=== PATIENT | female | born 1965 | race Caucasian/White ===

== ENCOUNTER 2018-04-07 22:06 | Emergency (ER) | payer OTHER ==
--- NOTE | 2018-04-07 22:26 | EDM.PDOC ---
ED HPI GENERAL MEDICAL PROBLEM - General Chief Complaint: ENT Problem Stated Complaint: SOMETHING LODGED IN THROAT Time Seen by Provider: 04/07/18 22:21 Source of Information: Reports: Patient, Family History Limitations: Reports: No Limitations - History of Present Illness INITIAL COMMENTS - FREE TEXT/NARRATIVE: 52-year-old female presents to the ED with a foreign body sensation in her upper throat. She states she took a disc-like tablet that is supposed to help her sleep and is an nuiy-hzu-hxnlwzj preparation 40 minutes before coming to the ED. She felt it get stuck in her upper esophagus and it won't go down. She is able to drink warm water and it's going by it but she can feel the foreign body sensation in her upper throat. She feels a little nauseated and like she could throw up but has not thus far. Is the first time she's taken this over-the -counter preparation which apparently is a herbal medication to try and help sleep. She believes it was supposed to be a chewable disc like tablet and she swallowed it whole. Onset: Today Onset Date: 04/07/18 Onset Time: 21:30 Duration: Minutes: Location: Reports: Chest (Or body stuck at the suprasternal notch area of her throat.) Quality: Reports: Ache, Pressure Severity: Moderate Improves with: Reports: None Worsens with: Reports: None Context: Reports: Other (Foreign body in her esophagus.). Denies: Activity, Exercise, Sick Contact, Trauma Associated Symptoms: Reports: Nausea/Vomiting (Nausea without vomiting) Treatments [employer]: Reports: Other (see below) (Just drinking warm water to help it will dissolve it.) - Related Data Allergies Allergy/AdvReac Type Severity Reaction Status Date / Time No Known Allergies Allergy Verified 04/07/18 22:08 Home Meds: Home Meds . [No Known Home Meds] 04/07/18 [History] Past Medical History - Past Surgical History HEENT Surgical History: Reports: Tonsillectomy Female Surgical History: Reports: Section Social & Family History - Tobacco Use Smoking Status *Q: Never Smoker - Alcohol Use Days Per Week of Alcohol Use: 2 Number of Drinks Per Day: 2 Total Drinks Per Week: 4 - Recreational Drug Use Recreational Drug Use: No - Living Situation & Occupation Living situation: Reports: Occupation: Unemployed ED ROS GENERAL - Review of Systems Review Of Systems: See Below Constitutional: Denies: Fever, Chills, Malaise, Weakness, Fatigue HEENT: Reports: Glasses Respiratory: Reports: No Symptoms Cardiovascular: Reports: No Symptoms Endocrine: Reports: No Symptoms GI/Abdominal: Reports: Difficulty Swallowing (Fluid is going around the foreign body but she feels like it wants to come back up.), Nausea, Other (Foreign body sensation in her upper esophagus. She ate a disc-like tablet that she believes was likely to be chewed and it got stuck in her upper esophagus about 40 minutes before coming to the ED. Taking warm water in hopes of trying to dissolve it.). Denies: Abdominal Pain, Anorexia, Black Stool, Bloody Stool : Reports: No Symptoms Musculoskeletal: Reports: No Symptoms Skin: Reports: No Symptoms Neurological: Reports: No Symptoms Psychiatric: Reports: No Symptoms Hematologic/Lymphatic: Reports: No Symptoms Immunologic: Reports: No Symptoms ED EXAM, GI/ABD - Physical Exam Exam: See Below Exam Limited By: No Limitations General Appearance: Alert, WD/WN, Anxious (Moderately anxious) Eyes: Bilateral: Normal Appearance Neck: Normal Inspection, Supple, Non-Tender, Full Range of Motion. No: Lymphadenopathy (L), Lymphadenopathy (R) Respiratory/Chest: No Respiratory Distress, Lungs Clear, Normal Breath Sounds, No Accessory Muscle Use, Other Cardiovascular: Normal Peripheral Pulses, Regular Rate, Rhythm (No stridor), No Edema, No Gallop, No Murmur Course - Vital Signs Last Recorded V/S: Last Vital Signs Temp 35.8 C 04/07/18 22:08 Pulse 75 04/07/18 22:08 Resp 18 04/07/18 22:08 BP 155/98 H 04/07/18 22:08 Pulse Ox 100 04/07/18 22:08 - Radiology Interpretation Free Text/Narrative:: 52-year-old female presents to the ED with a foreign body sensation in her upper esophagus. This is a disc like tablet that is an gsiq-xby-ghkyapo preparation to try and aid sleep. She states is the first time she's ever used it. She believes now that was likely to be a chewable tablet and she swallowed it whole. She estimates it to be the size of a quarter perhaps a little bit larger. Symptoms started 40 minutes before coming to the ED. She is drinking warm water the hopes of trying to dissolve the foreign body. She was given some bread to take orally to try and help facilitate passage of the foreign body. While we were examining her she was eating bits and pieces of the bread and drinking warm water and she felt a foreign body from her upper esophagus to the lower esophagus. Fluids are going down fine. - Re-Assessments/Exams Free Text/Narrative Re-Assessment/Exam: 04/07/18 22:36 patient feels no foreign body obstruction in her distal esophagus or upper esophagus at this time. She feels pretty well back to normal. She will therefore be discharged to home. Departure - Departure Time of Disposition: 22:35 Disposition: Home, Self-Care 01 Condition: Fair Clinical Impression: Esophageal foreign body Qualifiers: Encounter type: initial encounter Qualified Code(s): T18.108A - Unspecified foreign body in esophagus causing other injury, initial encounter - Discharge Information *PRESCRIPTION DRUG MONITORING PROGRAM REVIEWED*: Not Applicable *COPY OF PRESCRIPTION DRUG MONITORING REPORT IN PATIENT ELAINA: Not Applicable Instructions: Swallowed Foreign Body, Adult Forms: ED Department Discharge Additional Instructions: Evaluation the emergency room today in regards to foreign body sensation upper esophagus after swallowing a discoid type tablet is an gpxz-krm-yyhihnc preparation to aid sleep. It appears in the discoid tablet got stuck in the upper esophagus. Symptoms resolved with the continued use of drinking warm water and taking a bits and pieces of bread orally. It appears that the foreign body has now passed into the stomach as you're not having any further symptoms. No further treatment is required
== END 2018-04-07 22:44 | disposition home or self-care (01) ==
LOC: JD.ED 22:06
DX: T18.108A Unspecified foreign body in esophagus causing other injury, initial encounter (principal); X58.XXXA Exposure to other specified factors, initial encounter
CPT/HCPCS: 99281; 99283